=== PATIENT | female | born 1990 | race African-American/Black ===

== ENCOUNTER 2017-01-03 09:37 | Emergency (ER) | payer OTHER ==
[2016-01-14 09:57] VITALS: BP 114/82
== END 2017-01-03 10:36 | disposition left against medical advice (07) ==
LOC: ER 09:37
DX: R06.02 Shortness of breath (principal); R05 Cough; J02.9 Acute pharyngitis, unspecified; Z53.21 Procedure and treatment not carried out due to patient leaving prior to being seen by health care provider

== ENCOUNTER 2017-11-26 13:48 | Emergency (ER) | payer OTHER ==
[2017-11-26] MEDS: LIDOCAINE 1% PF 2 ML VIAL. INJ (14:09)
[2017-11-26] MEDS: ACETAMINOPHEN/CODEINE 300/30MG TABLET. PO (14:16)
== END 2017-11-26 14:24 | disposition home or self-care (01) ==
LOC: ER 13:48
DX: L05.01 Pilonidal cyst with abscess (principal)
CPT/HCPCS: 10080; 99284-25

== ENCOUNTER 2018-02-05 12:32 | Emergency (ER) | payer SELFPAY, OTHER | END 2018-02-05 13:36 | disposition home or self-care (01) | LOC: ER 12:32 | DX: L05.01 Pilonidal cyst with abscess (principal) | CPT/HCPCS: 99283 ==

== ENCOUNTER 2018-08-24 08:33 | Emergency (ER) | payer OTHER ==
[~2018-08-24] VITALS: Ht 162.6 cm; Wt 81.6 kg
[~2018-08-24 08:33] MED LIST: ACET-704 PO; HYDR-971 PO; SULF1TAB24 PO
--- NOTE | 2018-08-24 09:27 | PHYS DOC ---
Past Medical History Past Medical History: Kidney Stone, Other Additional Past Medical Histor: back pain Past Surgical History: No Surgical History Smoking: Less than 1pk/day (social) Alcohol Use: Rarely Drug Use: None Adult General Chief Complaint Chief Complaint: ABDOMINAL PAIN HPI HPI 27-year-old female presents with report of right upper quadrant abdominal pain with radiation to left upper quadrant and bilateral flanks 3 days. Reports some associated nausea. Patient does report history of gastritis and reports her acid reflux has been worse. Denies fever or chills. Denies . Denies trauma. Patient does report significant family history of cholecystitis. Review of Systems Review of Systems Constitutional: Denies fever or chills; reports generalized malaise Eyes: Denies change in visual acuity, redness, or eye pain [] HENT: Denies nasal congestion or sore throat [] Respiratory: Denies cough or shortness of breath [] Cardiovascular: Denies chest pain or palpitations GI: Reports upper abdominal pain and nausea Denies vomiting, bloody stools or diarrhea [] : Denies dysuria or hematuria; Reports flank pain Musculoskeletal: Denies back pain or joint pain [] Integument: Denies rash or skin lesions [] Neurologic: Denies headache, focal weakness or sensory changes [] Complete systems were reviewed and found to be within normal limits, except as documented in this note. Current Medications Current Medications Current Medications Medications (Trade) Dose Ordered Sig/Brittany Start Time Stop Time Status Last Admin Dose Admin Famotidine (Pepcid Vial) 20 mg 1X ONCE 08/24/18 09:30 08/24/18 09:31 DC 08/24/18 09:56 20 MG Ketorolac Tromethamine (Toradol 30mg Vial) 15 mg 1X ONCE 08/24/18 09:30 08/24/18 09:31 DC 08/24/18 09:56 15 MG Ondansetron HCl (Zofran) 4 mg 1X ONCE 08/24/18 09:30 08/24/18 09:31 DC 08/24/18 09:56 4 MG Sodium Chloride 1,000 ml @ 1,000 mls/hr 1X ONCE 08/24/18 09:30 08/24/18 10:29 DC 08/24/18 09:55 1,000 MLS/HR Allergies Allergies Allergies Coded Allergies Type Severity Reaction Last Updated Verified No Known Drug Allergies 12/01/15 No Physical Exam Physical Exam Constitutional: Well developed, well nourished, no acute distress, non-toxic appearance. [] HENT: Normocephalic, atraumatic, bilateral external ears normal, oropharynx moist, no oral exudates, nose normal. [] Eyes: conjunctiva normal, no discharge. [] Neck: Normal range of motion, no tenderness, supple, no meningeal signs Cardiovascular: Heart rate regular rhythm, no murmur [] Lungs & Thorax: Bilateral breath sounds clear to auscultation [] Abdomen: Soft, mild RUQ tenderness Skin: Warm, dry, no erythema, no rash. [] Back: No tenderness, no CVA tenderness. [] Extremities: No tenderness, no cyanosis, no clubbing, ROM intact, no edema. [] Neurologic: Alert and oriented X 3, normal motor function, normal sensory function, no focal deficits noted. [] Psychologic: Affect normal, judgement normal, mood normal. [] Current Patient Data Vital Signs Vital Signs Date Time Temp Pulse Resp B/P (MAP) Pulse Ox O2 Delivery O2 Flow Rate FiO2 08/24/18 09:18 98.7 20 108/55 (72) Room Air 98.7 Lab Values Laboratory Tests Test 08/24/18 08:42 08/24/18 09:54 Urine Collection Type Unknown Urine Color Yellow Urine Clarity Clear Urine pH 8.5 Urine Specific Chrisney 1.020 Urine Protein 30 mg/dL (NEG-TRACE) Urine Glucose (UA) Negative mg/dL (NEG) Urine Ketones (Stick) Negative mg/dL (NEG) Urine Blood Large (NEG) Urine Nitrite Negative (NEG) Urine Bilirubin Negative (NEG) Urine Urobilinogen Dipstick 0.2 mg/dL (0.2 mg/dL) Urine Leukocyte Esterase Small (NEG) Urine RBC 11-20 /HPF (0-2) Urine WBC 1-4 /HPF (0-4) Urine Squamous Epithelial Cells Many /LPF Urine Bacteria Many /HPF (0-FEW) Urine Mucus Mod /LPF Urine Test Negative (NEG) White Blood Count 4.0 x10^3/uL (4.0-11.0) Red Blood Count 4.31 x10^6/uL (3.50-5.40) Hemoglobin 13.3 g/dL (12.0-15.5) Hematocrit 39.4 % (36.0-47.0) Mean Corpuscular Volume 92 fL (79-100) Mean Corpuscular Hemoglobin 31 pg (25-35) Mean Corpuscular Hemoglobin Concent 34 g/dL (31-37) Red Cell Distribution Width 13.7 % (11.5-14.5) Platelet Count 322 x10^3/uL (140-400) Neutrophils (%) (Auto) 49 % (31-73) Lymphocytes (%) (Auto) 32 % (24-48) Monocytes (%) (Auto) 12 % (0-9) H Eosinophils (%) (Auto) 6 % (0-3) H Basophils (%) (Auto) 1 % (0-3) Neutrophils # (Auto) 1.9 x10^3uL (1.8-7.7) Lymphocytes # (Auto) 1.2 x10^3/uL (1.0-4.8) Monocytes # (Auto) 0.5 x10^3/uL (0.0-1.1) Eosinophils # (Auto) 0.3 x10^3/uL (0.0-0.7) Basophils # (Auto) 0.0 x10^3/uL (0.0-0.2) Prothrombin Time 13.4 SEC (11.7-14.0) Prothrombin Time INR 1.1 (0.8-1.1) PTT 30 SEC (24-38) Sodium Level 139 mmol/L (136-145) Potassium Level 3.8 mmol/L (3.5-5.1) Chloride Level 105 mmol/L (98-107) Carbon Dioxide Level 23 mmol/L (21-32) Anion Gap 11 (6-14) Blood Urea Nitrogen 8 mg/dL (7-20) Creatinine 0.8 mg/dL (0.6-1.0) Estimated GFR (Cockcroft-Gault) 104.9 BUN/Creatinine Ratio 10 (6-20) Glucose Level 108 mg/dL (70-99) H Calcium Level 9.0 mg/dL (8.5-10.1) Magnesium Level 2.3 mg/dL (1.8-2.4) Total Bilirubin 0.7 mg/dL (0.2-1.0) Aspartate Amino Transferase (AST) 136 U/L (15-37) H Alanine Aminotransferase (ALT) 201 U/L (14-59) H Alkaline Phosphatase 123 U/L (46-116) H Total Protein 7.6 g/dL (6.4-8.2) Albumin 3.5 g/dL (3.4-5.0) Albumin/Globulin Ratio 0.9 (1.0-1.7) L Lipase 77 U/L (73-393) Laboratory Tests 08/24/18 09:54 Laboratory Tests 08/24/18 09:54 EKG EKG [] Radiology/Procedures Radiology/Procedures PROCEDURE: ABDOMEN LTD EXAM: Abdomen sonogram. HISTORY: Right upper quadrant pain. TECHNIQUE: Sonographic imaging of the abdomen was performed. COMPARISON: None. FINDINGS: The liver is normal in size. No focal hepatic lesion is seen. The gallbladder is unremarkable. The common bile duct is normal in caliber. The right kidney is unremarkable. The pancreas and inferior vena cava are unremarkable. The aorta is not formally assessed. IMPRESSION: Unremarkable abdomen sonogram. Electronically signed by: Halima Flores MD (08/24/2018 10:14 AM) [facility] Course & Med Decision Making Course & Med Decision Making Pertinent Labs and Imaging studies reviewed. (See chart for details) Patient presents with 3 day history of right upper quadrant abdominal pain with radiation to bilateral flank. Reports worse with eating. Reports family history of cholecystitis. Labs obtained and posted to chart. LFT all slightly elevated. Lipase WNL. UA appears contaminated as patient is on her menstrual period. Abdominal US without acute process noted. Symptomatic treatment provided with interval improvement. IVF hydration also given. Liver enzyme elevation may be secondary to patient's current waist weight loss drug versus gallbladder dysfunction. Patient advised to follow with her PCP and/or GI specialist for recheck. Patient stable for discharge with outpatient follow-up with PCP/GI. GI referral provided. Discussed findings and plan with patient, who acknowledges understanding and agreement. Dragon Disclaimer Dragon Disclaimer This electronic medical record was generated, in whole or in part, using a voice recognition dictation system. Departure Departure Impression: Primary Impression: Abdominal pain Additional Impression: Elevated liver enzymes Disposition: HOME, SELF-CARE Condition: STABLE Referrals: BRENDEN CRUZ MD (PCP) BENNETT MENA MD Patient Instructions: Abdominal Pain (Nonspecific), Gastritis, Adult, Easy-to- Read Additional Instructions: Please have your doctor or GI specialist recheck your liver enzymes which were slightly elevated. Scripts Hyoscyamine Sulfate (LEVSIN-SL) 0.125 Mg Tab.subl 1 TAB SL PRN Q4HRS PRN for PAIN, #20 TAB 0 Refills Prov: CYNDI SWEET DO 08/24/18 Famotidine (PEPCID) 20 Mg Tablet 20 MG PO BID, #14 TAB Prov: CYNDI SWEET DO 08/24/18 Ondansetron (ZOFRAN ODT) 4 Mg Tab.rapdis 4 MG PO BID PRN for NAUSEA/VOMITING, #14 TAB Prov: CYNDI SWEET DO 08/24/18 Problem Qualifiers Primary Impression: Abdominal pain Abdominal location: right upper quadrant Qualified Codes: R10.11 - Right upper quadrant pain CYNDI SWEET DO Aug 24, 2018 09:27
[2018-08-24] MEDS ORDERED: IV NORMAL SALINE 1000ML BAG 1,000 ML IV ONE (09:30)
[2018-08-24] MEDS ORDERED: ONDANSETRON PF 4 MG/2 ML VIAL. IV ONE (09:30)
[2018-08-24] MEDS ORDERED: FAMOTIDINE 20 MG/2 ML VIAL IVP ONE (09:30)
[2018-08-24] MEDS ORDERED: KETOROLAC 30 MG/ML VIAL. IV ONE (09:30)
[2018-08-24 09:35] LABS: BILIRUBIN,URINE NEGATIVE (NEG); CLARITY,URINE CLEAR; COLOR,URINE YELLOW; NITRITE,URINE NEGATIVE (NEG); PH,URINE 8.5; PROTEIN,URINE 30 mg/dL (NEG-TRACE); UROBILINOGEN,URINE 0.2 mg/dL (0.2 mg/dL)
[2018-08-24 09:41] LABS: U PREG PATIENT NEGATIVE (NEG)
[2018-08-24 09:48] LABS: BACTERIA,URINE MANY /HPF (0-FEW); SQUAMOUS EPITHELIAL CELL,UR MANY /LPF
[2018-08-24 10:10] LABS: BASO % 1 % (0-3); EOS # 0.3 x10^3/uL (0.0-0.7); EOS % 6 % (0-3); HEMATOCRIT 39.4 % (36.0-47.0); HEMOGLOBIN 13.3 g/dL (12.0-15.5); LYMPH # 1.2 x10^3/uL (1.0-4.8); LYMPH % 32 % (24-48); MEAN CORPUSCULAR HEMOGLOBIN 31 pg (25-35); MEAN CORPUSCULAR HGB CONC 34 g/dL (31-37); MEAN CORPUSCULAR VOLUME 92 fL (79-100); MONO # 0.5 x10^3/uL (0.0-1.1); MONO % 12 % (0-9); NEUT # 1.9 x10^3uL (1.8-7.7); NEUT % 49 % (31-73); PLATELET COUNT 322 x10^3/uL (140-400); RED BLOOD COUNT 4.31 x10^6/uL (3.50-5.40); RED CELL DISTRIBUTION WIDTH 13.7 % (11.5-14.5)
[2018-08-24 10:18] LABS: PROTHROMBIN TIME PATIENT 13.4 SEC (11.7-14.0)
--- NOTE | 2018-08-24 10:18 | RAD ---
EXAM: Abdomen sonogram. HISTORY: Right upper quadrant pain. TECHNIQUE: Sonographic imaging of the abdomen was performed. COMPARISON: None. FINDINGS: The liver is normal in size. No focal hepatic lesion is seen. The gallbladder is unremarkable. The common bile duct is normal in caliber. The right kidney is unremarkable. The pancreas and inferior vena cava are unremarkable. The aorta is not formally assessed. IMPRESSION: Unremarkable abdomen sonogram. Electronically signed by: Halima Flores MD (08/24/2018 10:14 AM) [place] [id number]
[2018-08-24 10:28] LABS: CREATININE 0.8 mg/dL (0.6-1.0); GFR 104.9; POTASSIUM 3.8 mmol/L (3.5-5.1)
[2018-08-24 10:34] LABS: ALBUMIN 3.5 g/dL (3.4-5.0); ALBUMIN/GLOBULIN RATIO 0.9 (1.0-1.7); MAGNESIUM 2.3 mg/dL (1.8-2.4); TOTAL BILIRUBIN 0.7 mg/dL (0.2-1.0); TOTAL PROTEIN 7.6 g/dL (6.4-8.2)
[2018-08-24] MEDS ORDERED: ONDA4TAB10 PO (10:41)
[2018-08-24] MEDS ORDERED: FAMO-63 PO (10:41)
[2018-08-24 10:54] VITALS: BP 113/63
[2018-08-24] MEDS ORDERED: HYOS0.1265 SL (10:54)
== END 2018-08-24 10:57 | disposition home or self-care (01) ==
LOC: ER 08:33
DX: R10.11 Right upper quadrant pain (principal); R11.0 Nausea; F17.200 Nicotine dependence, unspecified, uncomplicated; Z87.442 Personal history of urinary calculi
CPT/HCPCS: 36415; 76705; 80053; 81001; 81025; 83690; 83735; 85025; 85610; 85730; 87086; 96361; 96374; 96375; 99285; J1885; J2405; J7030; S0028

== ENCOUNTER → 2018-08-28 | Outpatient (CLI) | payer OTHER ==
[2018-08-24 10:54] VITALS: BP 113/63
[~2018-08-28] MED LIST changes: +FAMO-63 PO; +HYOS0.1265 SL; +ONDA4TAB10 PO
--- NOTE | 2018-09-01 09:44 | RAD ---
Radionuclide hepatobiliary scan, 08/28/2018: History: Abdominal pain Following IV injection of 5.0 mCi of technetium 99m Choletec there was prompt uptake of the radionuclide from the blood stream by the liver. There was prompt appearance of activity in the gallbladder, bile ducts and small bowel. The gallbladder ejection component of the study was performed utilizing the Boost oral liquid supplement rather than cholecystokinin, due to the lack of current availability of the cholecystokinin. The gallbladder ejection fraction was calculated at 25%. IMPRESSION: 1. No evidence of cystic duct or common bile duct obstruction. 2. Low gallbladder ejection fraction of 25%.
== END | disposition home or self-care (01) ==
LOC: NM 09:47
PROVIDERS: ATTEND Internal Medicine
DX: R10.84 Generalized abdominal pain (principal); Z87.891 Personal history of nicotine dependence
CPT/HCPCS: 78226; 96374; 96375; A9537

== ENCOUNTER → 2020-08-09 | Outpatient (CLI) | payer OTHER ==
[~2020-08-09] MED LIST changes: +HYDR-3164 PO; -HYDR-971 PO
--- NOTE | 2020-08-09 16:23 | RAD ---
EXAM: Obstetrics sonogram. HISTORY: Size and dates discrepancy. TECHNIQUE: Sonographic imaging of a gravid uterus was performed. COMPARISON: None. FINDINGS: There is a single imaging fetus in breech presentation with a normal heart rate of 136 bpm. The stomach, kidneys, bladder, spine, brain, facial profile and heart are unremarkable. There is a three-vessel umbilical cord with normal insertion. There is a grade 1 anterior placenta without evidence of placenta previa. The cervix is closed and measures 5.1 cm in length. The amniotic fluid volume is grossly normal. The biparietal diameter is 6.15 cm, corresponding with 25 weeks and 0 days and the 78th percentile. The head circumference is 22.99 cm, corresponding with 25 weeks and 0 days and the 71st percentile. The abdominal circumference is 19.98 cm, corresponding with 24 weeks and 4 days and the 61st percentile. The femoral length is 4.25 cm, corresponding with 23 weeks and 6 days and the 33rd percentile. The estimated gestational age patient combined ultrasound measurements is 24 weeks and 4 days. The estimated weight is 693 g, corresponding with the 48th percentile for an estimated gestational age of 24 weeks and 0 days based on LMP. IMPRESSION: 1. Single imaging fetus in breech presentation with normal heart rate and gestational age based on ultrasound measurements of 24 weeks and 4 days. The estimated weight is at the 48th percentile for a gestational age of 24 weeks and 0 days based on L3. 2. Unremarkable anatomy survey. Electronically signed by: Halima Flores MD (08/09/2020 4:20 PM) [id number]
== END | disposition home or self-care (01) ==
LOC: US 09:48
PROVIDERS: ATTEND Obstetrics & Gynecology
DX: O26.842 Uterine size-date discrepancy, second trimester (principal); Z3A.24 24 weeks gestation of pregnancy
CPT/HCPCS: 76805

== ENCOUNTER 2021-07-28 11:31 | Emergency (ER) | payer SELFPAY ==
[~2021-07-28] VITALS: Ht 162.6 cm; Wt 97.0 kg
[2021-07-28 12:00] VITALS: BP 160/94
--- NOTE | 2021-07-28 12:54 | PHYS DOC ---
Past Medical History Past Medical History: Kidney Stone, Other Additional Past Medical Histor: back pain Past Surgical History: No Surgical History Smoking Status: Current Some Day Smoker Alcohol Use: Occasionally Drug Use: None General Adult EDM: Chief Complaint: MECHANICAL FALL Problems: (1) Back pain (2) Hip pain, left (3) Foot pain, left (4) Neck pain on left side (5) Leg pain, left HPI: HPI: Patient is a 30 year old female who presents with pain on the left side of her body status post a fall inside of [employer] at 5:30 this morning. Patient states it was raining outside, and she stepped inside of the gas station, and fell immediately. She states she fell to the floor without head trauma or loss of consciousness, but it took her a while to stand up. She reports pain to her low back radiating to her left hip. She states that when she bears weight the pain radiates down her left leg. She states she has pain to her left foot, specifically on the toes. She states her foot is also going numb periodically. She also reports pain in her left shoulder radiating to the neck. At rest she states her pain is 6/10 "a burning ache." When she bears weight, the pain increases to a 7/10 in her left leg. She states that when she was over the "shock" she went to the counter to tell the employee what it happened. She states that he refused to file an incident report twice. Review of Systems: Review of Systems: Constitutional: Denies fever or chills. [] Eyes: Denies change in visual acuity. [] HENT: Denies nasal congestion or sore throat. [] Respiratory: Denies cough or shortness of breath. [] Cardiovascular: Denies chest pain or edema. [] GI: Denies abdominal pain, nausea, vomiting, bloody stools or diarrhea. [] : Denies dysuria. [] Musculoskeletal: Reports pain on left side neck, low back, hip, foot. [] Integument: Denies laceration, rash. [] Neurologic: Denies headache, dizziness, focal weakness or sensory changes. [] Heart Score: C/O Chest Pain: No Risk Factors: Risk Factors: DM, Current or recent (<one month) smoker, HTN, HLP, family history of CAD, obesity. Risk Scores: Score 0 - 3: 2.5% MACE over next 6 weeks - Discharge Home Score 4 - 6: 20.3% MACE over next 6 weeks - Admit for Clinical Observation Score 7 - 10: 72.7% MACE over next 6 weeks - Early Invasive Strategies Allergies: Allergies: Allergies Coded Allergies Type Severity Reaction Last Updated Verified No Known Drug Allergies 12/01/15 No Physical Exam: PE: Constitutional: Well developed, well nourished, no acute distress, non-toxic appearance. [] HENT: Normocephalic, atraumatic, bilateral external ears normal, nose normal. [] Eyes: PERRLA, EOMI, conjunctiva normal, no discharge. [] Neck: Paraspinal tenderness near C4/C5. Normal range of motion, supple, no stridor. [] Cardiovascular: Heart rate regular rhythm, no murmur [] Lungs & Thorax: Bilateral breath sounds clear to auscultation [] Abdomen: Bowel sounds normal, soft, no tenderness, no masses, no pulsatile masses. [] Skin: Warm, dry, no erythema, no rash. [] Back: No obvious deformity. No bony tenderness or step-offs. Paraspinal te nderness in lumbosacral region. No CVA tenderness. [] Extremities: No obvious deformities. Tenderness to palpation on lateral left hip. Range of motion intact bilateral lower extremities, with the exception of the left foot secondary to pain. Neurovascular intact. No cyanosis, no clubbing, no edema. [] Neurologic: Alert and oriented X 3, normal motor function, normal sensory function, no focal deficits noted. [] Current Patient Data: Labs: Laboratory Tests Test 07/28/21 12:45 Bedside Urine HCG, Qualitative Hcg negative (Negative) Vital Signs: Vital Signs Date Time Temp Pulse Resp B/P (MAP) Pulse Ox O2 Delivery O2 Flow Rate FiO2 07/28/21 12:00 98.7 89 16 160/94 (80) 100 Room Air 98.7 EKG: EKG: [] Radiology/Procedures: Radiology/Procedures: PROCEDURE: XR FOOT_LEFT 3 VIEWS, XR CERVICAL SPINE 2-3V, XR PELVIS 1-2V, XR LUM BAR SPINE 2-3V CLINICAL HISTORY: Fall TECHNIQUE: XR FOOT_LEFT 3 VIEWS, XR CERVICAL SPINE 2-3V, XR PELVIS 1-2V, XR LUMBAR SPINE 2-3V Number of Images/Views: 3 C-spine, 3 L-spine, 1 pelvis, 3 left foot COMPARISON: None FINDINGS: C-SPINE: Straightening of the normal cervical lordosis, likely positional. No evidence of acute fracture or spondylolisthesis. No significant degenerative changes. No prevertebral soft tissue swelling. L SPINE: Normal anatomic alignment. No evidence of acute fracture or spondylolisthesis. No significant degenerative changes. SI joints maintained. Cholecystectomy clips. PELVIS: No evidence of acute fracture. Joint space alignment maintained in the bilateral hips. Mild degenerative changes in the pubic symphysis. SI joints maintained. LEFT FOOT: Joint spaces and alignment maintained. No acute fracture. Mild soft tissue prominence along the dorsal forefoot. IMPRESSION: No acute osseous abnormality involving the C-spine, L-spine, pelvis, or left foot. Electronically signed by: Rodolfo Hyatt DO (07/28/2021 2:24 PM) [facility] Course & Med Decision Making: Course & Med Decision Making Pertinent Labs and Imaging studies reviewed. (See chart for details) Patient's pain somewhat improved with ibuprofen. Patient states she is still in discomfort, however is agreeable to being sent home with ketorolac versus OTC ibuprofen. Dragtala Disclaimer: Dragtala Disclaimer: This electronic medical record was generated, in whole or in part, using a voice recognition dictation system. Departure Departure Impression: Primary Impression: Back pain Additional Impressions: Hip pain, left Foot pain, left Disposition: 01 HOME / SELF CARE / HOMELESS Condition: STABLE Referrals: NO PCP (PCP) Patient Instructions: Back Pain, Adult, [id number], Foot Contusion, [id number], Hip Pain Additional Instructions: Take prescribed NSAID as instructed for pain. If pain worsens or is persistent, or if you are unable to bear weight return to emergency department. Scripts Ketorolac Tromethamine (KETOROLAC TROMETHAMINE) 10 Mg Tablet 1 TAB PO PRN Q6HRS, #20 TAB For first dose, take 2 tablets by mouth 1 time. Following first dose, take 1 tablet by mouth every 6 hours as needed for pain. Prov: SILVANA MCGREGOR 07/28/21 SILVANA MCGREGOR Jul 28, 2021 12:54
[2021-07-28] MEDS ORDERED: IBUPROFEN 400 MG TABLET. PO ONE (13:00)
[2021-07-28] MEDS ORDERED: KETO10TA PO (13:52)
--- NOTE | 2021-07-28 14:26 | RAD ---
EXAMINATION: XR FOOT_LEFT 3 VIEWS, XR CERVICAL SPINE 2-3V, XR PELVIS 1-2V, XR LUMBAR SPINE 2-3V CLINICAL HISTORY: Fall TECHNIQUE: XR FOOT_LEFT 3 VIEWS, XR CERVICAL SPINE 2-3V, XR PELVIS 1-2V, XR LUMBAR SPINE 2-3V Number of Images/Views: 3 C-spine, 3 L-spine, 1 pelvis, 3 left foot COMPARISON: None FINDINGS: C-SPINE: Straightening of the normal cervical lordosis, likely positional. No evidence of acute fracture or sp ondylolisthesis. No significant degenerative changes. No prevertebral soft tissue swelling. L SPINE: Normal anatomic alignment. No evidence of acute fracture or spondylolisthesis. No significant degener ative changes. SI joints maintained. Cholecystectomy clips. PELVIS: No evidence of acute fracture. Joint space alignment maintained in the bilateral hips. Mild degenerat mercedes changes in the pubic symphysis. SI joints maintained. LEFT FOOT: Joint spaces and alignment maintained. No acute fracture. Mild soft tissue prominence along the dorsa l forefoot. IMPRESSION: No acute osseous abnormality involving the C-spine, L-spine, pelvis, or left foot. Electronically signed by: Rodolfo Hyatt DO (07/28/2021 2:24 PM) [facility]
== END 2021-07-28 14:45 | disposition home or self-care (01) ==
LOC: ER 11:31
DX: M54.5 Low back pain (principal); G89.11 Acute pain due to trauma; M25.552 Pain in left hip; M79.672 Pain in left foot; M54.2 Cervicalgia; M25.512 Pain in left shoulder; M79.605 Pain in left leg; F17.200 Nicotine dependence, unspecified, uncomplicated; W18.39XA Other fall on same level, initial encounter; Y93.89 Activity, other specified; Y92.89 Other specified places as the place of occurrence of the external cause; Y99.8 Other external cause status
CPT/HCPCS: 72040; 72100; 72170; 73630; 81025; 99284